=== PATIENT | female | born 1980 | race Caucasian/White ===

== ENCOUNTER 2019-01-31 11:08 | Inpatient (IN) | payer OTHER ==
[~2019-01-31] VITALS: Ht 167.6 cm; Wt 122.0 kg
[2019-04-26] VITALS (12 sets, daily range): BP systolic 107–134; BP diastolic 64–82; PULSE 67–104; TEMP 97–98.6
[2019-04-26] MEDS ORDERED: ZYRTEC 10MG10 MG PO (07:55)
[2019-04-26] MEDS ORDERED: ARIMIDEX1 MG PO (07:56)
--- NOTE | 2019-04-26 13:09 | NUR ---
PT TO ROOM 331 PER BED WITH REPORT FROM [employer] OFFICER @1250. PT IS A/O X3 LUNGS CLEAR, BOWEL SOUNDS PRESENT. BYRON WRAP AND CRYOCUFF OVER INCISION CDI. TEDS AND SCDS BILATERALLY. FAMILY AT BEDSIDE.
--- NOTE | 2019-04-26 13:40 | NUR ---
MOIZ met with the patient to discuss discharge plan. The patient lives in [place] with her , Brice. She came to [place] to receive surgery and has been staying with her parent's in [place]. She reports independence with ADLs and has a cane and walker. The patient's PCP is Dr. Arielle Arambula in [place], [place] and she receives her medications at the [facility]. She reports no difficulties obtaining her meds. The patient does not have advanced directives and she was not interested in completing them at this time. The patient plans to return to her [facility] and receive outpatient therapy at [facility] upon discharge. She states she plans to return back to [place] at the beginning of June. No additional needs at this time.
--- NOTE | 2019-04-26 18:57 | NUR ---
REPORT TO TOMASA ADAME.
--- NOTE | 2019-04-26 20:00 | NUR ---
Report received. Assumed care for warp trucker. Assessment complete. Dressng to right knee-amaya bandage-bulky under dressing C/D/I. Denies need for pain medications. Fresh ice to cryocuff. Plan of care discussed for ambulating this shift. Verbalizes understanding. SCDs on. Call light in reach with instruction to call for needs. Verbalizes understanding.
[2019-04-27 03:24] VITALS: BP 118/75; PULSE 83; TEMP 98.2
--- NOTE | 2019-04-27 05:30 | NUR ---
Has rested well later this shift. Stated Toradol helped pain more than roxicodone. Ambulated on my shift with 2 assist/walker/gait belt. Denies needs. Cryocuff with fresh/ice water. Educated to keep proper alignement with pillow. Verbalizes understanding. WIll monitor.
[2019-04-27 06:38] LABS: HEMOGLOBIN 11.9 g/dl (12.5-16.0)
[2019-04-27 07:05] LABS: HEMATOCRIT 35.7 % (37.0-47.0)
[2019-04-27 07:33] VITALS: BP 110/74; PULSE 90; TEMP 98.4
--- NOTE | 2019-04-27 09:08 | NUR ---
First visit from the plumbing warehouse helper. No needs right now.
--- NOTE | 2019-04-27 09:53 | NUR ---
PATIENT UP WITH THERAPY THIS AM. EATING AND DRINKING WITH NO N/V. PAIN CONTROLLED WITH PO MEDS. VSS, PT VERY WILLING TO PARTICIPATE IN REHAB. DRESSING TO RIGHT KNEE CDI.
[2019-04-27 12:31] VITALS: BP 116/67; PULSE 91; TEMP 98.4
--- NOTE | 2019-04-27 15:59 | NUR ---
MEJIA CATHETER DISCONTINUED PER ORDERS, TIP INTACT, PT TOLERATED WELL.
[2019-04-27 16:05] VITALS: BP 131/61; PULSE 98; TEMP 97.7
--- NOTE | 2019-04-27 18:58 | NUR ---
REPORT TO GRZEGORZ ADAME.
[2019-04-27 20:27] VITALS: BP 132/67; PULSE 98; TEMP 98.2
[2019-04-27 22:51] VITALS: BP 125/71; PULSE 102; TEMP 98.5
[2019-04-28 00:04] VITALS: BP 129/64; PULSE 93; TEMP 98
[2019-04-28 04:29] VITALS: BP 129/74; PULSE 71; TEMP 97.9
--- NOTE | 2019-04-28 06:30 | NUR ---
Patient slept most the night. Rates her pain high between 5-8 on a 0-10 scale at all times. She got up to the bathroom a couple times during the night. She walked before bed. No complaints of nausea. No other changes at this time. Call light within reach.
[2019-04-28] MEDS ORDERED: XARELTO10 MG PO (07:19)
[2019-04-28] MEDS ORDERED: TORADOL 10MG TA10 MG PO (07:19)
[2019-04-28] MEDS ORDERED: ULTRAM 50MG TAB50 MG PO (07:23)
[2019-04-28 07:30] VITALS: BP 123/67; PULSE 85; TEMP 97.7
--- NOTE | 2019-04-28 08:00 | NUR ---
PATIENT IS A&O, OCCATIONALLY DROWSY. PATIENT REQUESTING SOMETHING FOR PAIN BEFORE AM THERAPY. GAVE PRN ROXICODONE, TWO TABS FOR PAIN IN RLE RATED AT 5/10. PATIENT TALKED WITH ORTHO RIGHT OF WAY BUYER AND REQUESTED TO DC HOME TODAY WITHOUT ANY NARCOTICS. PATIENT HAS A HX OF OPIOID ABUSE. SEE [facility] FOR ULTRAM. RLE POST OP DRESSING CHANGED TO AQUACEL. TEDS TO BLE. SCD'S CURRENTLY OFF. POSITIVE PEDAL PULSES. PATIENT ASSISTED TO BEDSIDE CHAIR WITH STAND BY ASSIST. CRYOCUFF TO RLE. BREAKFAST TRAY ORDERED. AM MEDS GIVEN. HEAD TO TOE ASSESSMENT COMPLETE. PATIENT PLANNING TO DISCHARGE HOME AROUND 5PM WHEN HER MOTHER GETS OFF WORK.
[2019-04-28 11:28] VITALS: BP 139/75; PULSE 107; TEMP 97.8
[2019-04-28 16:22] VITALS: BP 129/65; PULSE 99; TEMP 98.1
--- NOTE | 2019-04-28 17:30 | NUR ---
PATIENT DISCHARGING HOME VIA WHEELCHAIR TO PERSONAL VEHICLE WITH MOTHER. GAVE DISCHARGE INSTRUCTIONS, PRESCRIPTIONS, AQUACEL AND FOLLOW UP APTS. ANSWERED ALL QUESTIONS/CONCERNS. DC'D LEFT HAND IV, COVERED SITE WITH BANDAID. SENT PERSONAL BELONGINGS. PATIENT DISCHARGED.
== END 2019-04-28 17:30 | disposition home or self-care (01) | DRG 470 ==
LOC: JCC 04-26 07:05
PROVIDERS: ADMIT Orthopaedic Surgery
PROC: 0SRC0J9 Replacement of Right Knee Joint with Synthetic Substitute, Cemented, Open Approach (ICD-10-PCS; principal; 2019-04-26 10:00)
DX: M17.11 Unilateral primary osteoarthritis, right knee (principal); Z68.41 Body mass index [BMI] 40.0-44.9, adult; M10.9 Gout, unspecified; E78.00 Pure hypercholesterolemia, unspecified; I87.8 Other specified disorders of veins; M81.8 Other osteoporosis without current pathological fracture; E66.9 Obesity, unspecified; K59.00 Constipation, unspecified; Z79.01 Long term (current) use of anticoagulants; Z85.3 Personal history of malignant neoplasm of breast; Z92.21 Personal history of antineoplastic chemotherapy; Z90.710 Acquired absence of both cervix and uterus
CPT/HCPCS: A4314; A9284; C1776; J0690; J1885; J2250; J2704; J3010